=== PATIENT | female | born 1990 ===

== ENCOUNTER 2017-03-24 03:23 | Emergency (ER) | payer MEDICAID, OTHER ==
[2017-03-24 03:23] VITALS: BMI 35.5
[2017-03-24 03:35] VITALS: BP 127/89; PULSE 102; RESP 18; TEMP 97.9; O2SAT 100
--- NOTE | 2017-03-24 04:04 | C.PDOC ---
History Of Present Illness 26 year old female presents to the ER with a complaint of left ear pain since approximately 18:00. She reports taking tylenol with no relief . Denies ear discharge, fever, or change in hearing. Time Seen by Provider: 03/24/17 03:45 Chief Complaint (Nursing): ENT Problem History Per: Patient History/Exam Limitations: None Onset/Duration Of Symptoms: Hrs Current Symptoms Are (Timing): Still Present Quality (Ear): denies: Discharge Symptoms Have Been: Continuous Past Medical History Reviewed: Historical Data, Nursing Documentation, Vital Signs Vital Signs: Last Vital Signs Temp 97.9 F 03/24/17 03:32 Pulse 102 H 03/24/17 03:32 Resp 18 03/24/17 03:32 BP 127/89 03/24/17 03:32 Pulse Ox 100 03/24/17 04:06 - Medical History PMH: No Chronic Diseases Surgical History: No Surg Hx - [facility] Procedures DELIVERY OF PRODUCTS OF CONCEPTION, EXTERNAL APPROACH (03/29/16) MONITORING OF POC, CARDIAC RATE, DIRECTOR HYDROGEN STORAGE ENGINEERING APPROACH (03/29/16) REPAIR PERINEUM SKIN, EXTERNAL APPROACH (03/29/16) Family History: States: Unknown Family Hx - Social History Hx Alcohol Use: No Hx Substance Use: No - Immunization History Hx Tetanus Toxoid Vaccination: No Hx Influenza Vaccination: No Hx Pneumococcal Vaccination: No Review Of Systems Constitutional: Negative for: Fever, Chills ENT: Positive for: Ear Pain. Negative for: Ear Discharge, Other (Change in hearing) Cardiovascular: Negative for: Palpitations Respiratory: Negative for: Cough, Shortness of Breath Gastrointestinal: Negative for: Abdominal Pain Genitourinary: Negative for: Vaginal Bleeding Neurological: Negative for: Headache Physical Exam - Physical Exam Appears: Non-toxic, Other (Uncomfortable) Skin: Normal Color, Warm, Dry Head: Atraumatic, Normacephalic Eye(s): bilateral: Normal Inspection Ear(s): Left: TM Erythema ( bulging and erythematous canal), Right: Normal Nose: Normal, No Discharge Oral Mucosa: Moist Throat: Normal, No Erythema, No Exudate Neck: Normal, Supple Chest: Symmetrical Cardiovascular: Rhythm Regular, No Murmur Respiratory: Normal Breath Sounds, No Wheezing Extremity: Bilateral: Atraumatic, Normal ROM Neurological/Psych: Oriented x3, Normal Speech ED Course And Treatment O2 Sat by Pulse Oximetry: 100 (Room air) Pulse Ox Interpretation: Normal Medical Decision Making Medical Decision Making: patient with ear pain and exam shows AOM. Will start patient on amoxicillin and instruct to follow up with PMD or ENT for further evaluation, or return for any worsening of symptoms. Disposition Counseled Patient/Family Regarding: Diagnosis, Need For Followup, Rx Given - Disposition Referrals: Zay Dowling MD [Primary Care Provider] - Disposition: HOME/ ROUTINE Disposition Time: 04:20 Condition: GOOD Additional Instructions: Take Amoxicillin twice a day for 10 days Take Tylenol for pain as needed, can take up to 1gram Follow up with ENT or Primary if the pain persists. Prescriptions: Amoxicillin 500 mg PO BID #20 tablet Instructions: Otitis Media (ED) Forms: [facility] (French), Work Excuse - POA Present On Arrival: None - Clinical Impression Clinical Impression: Otitis media - PA / MASS SPEC / Resident Statement MD/DO has reviewed & agrees with the documentation as recorded. - Scribe Statement The provider has reviewed the documentation as recorded by the Scribaroldo Hansen All medical record entries made by the Abhinavibaroldo were at my direction and personally dictated by me. I have reviewed the chart and agree that the record accurately reflects my personal performance of the history, physical exam, medical decision making, and the department course for this patient. I have also personally directed, reviewed, and agree with the discharge instructions and disposition.
== END 2017-03-24 04:27 | disposition home or self-care (01) ==
LOC: C.ER 03:23 → SUPCPDRO 03:23 → C.ER 04:27
DX: H66.92 Otitis media, unspecified, left ear (principal)